=== PATIENT | male | born 1980 | race Caucasian/White ===

== ENCOUNTER 2022-06-05 13:55 | Outpatient (CLI) | payer OTHER, SELFPAY ==
[2022-06-05 14:34] LABS: Albumin* 4.8 g/dL (3.3-5.0); Chloride* 104 mmol/L (96-114)
[2022-06-05 14:35] LABS: Potassium* 4.5 mmol/L (3.6-5.1); Sodium* 140 mmol/L (135-149)
[2022-06-05 14:37] LABS: Aspartate Amino Transferase* 28 U/L (12-35); Bilirubin Total* 0.7 mg/dL (0.1-1.5); Blood Urea Nitrogen* 11 mg/dL (5-24); Carbon Dioxide* 28 mmol/L (20-32); Cholesterol* 318 mg/dL (90-199); Creatinine* 0.8 mg/dL (0.5-1.5); Estimated Glomerular Filt Rate 115 ml/min; Total Protein* 7.7 g/dL (6.0-8.3)
[2022-06-05 14:38] LABS: Alanine Aminotransferase* 37 U/L (4-50); Alkaline Phosphatase* 87 U/L (40-150); Calcium* 9.1 mg/dL (8.4-10.6); Glucose* 132 mg/dL (60-115); HDL Cholesterol* 37 mg/dL (>=40); LDL Cholesterol Calculated 227 mg/dL (<100); Triglycerides* 268 mg/dL (40-149)
== END 2022-06-05 13:56 | disposition home or self-care (01) ==
PROVIDERS: PCP Family Medicine; Visit Provider Family Medicine
DX: Z00.00 Encounter for general adult medical examination without abnormal findings (principal); Z13.6 Encounter for screening for cardiovascular disorders
CPT/HCPCS: 80053; 80061

== ENCOUNTER 2022-06-27 08:24 | Outpatient (CLI) | payer OTHER, SELFPAY ==
[2022-06-27 14:36] LABS: Creatinine Urine 206.9 mg/dL
[2022-06-27 14:43] LABS: Microalbumin Creatinine Ratio 20 mg/g (0-30); Microalbumin Urine 5 mg/dL
== END 2022-06-27 08:25 | disposition home or self-care (01) ==
LOC: FRMREF 08:50
PROVIDERS: PCP Family Medicine; Visit Provider Family Medicine
DX: Z00.00 Encounter for general adult medical examination without abnormal findings (principal); R73.03 Prediabetes; E66.9 Obesity, unspecified; E11.65 Type 2 diabetes mellitus with hyperglycemia; E78.2 Mixed hyperlipidemia
CPT/HCPCS: 82043; 82570

== ENCOUNTER 2022-09-24 08:15 | Outpatient (CLI) | payer OTHER, SELFPAY | END 2022-09-24 08:16 | disposition home or self-care (01) | LOC: NFLDREF 09-26 06:53 | PROVIDERS: PCP Family Medicine; Visit Provider Family Medicine | DX: E11.65 Type 2 diabetes mellitus with hyperglycemia (principal); E66.01 Morbid (severe) obesity due to excess calories; E78.2 Mixed hyperlipidemia | CPT/HCPCS: 80053; 80061; 82607 ==

== ENCOUNTER 2023-04-07 08:41 | Outpatient (CLI) | payer OTHER, SELFPAY | END 2023-04-07 08:42 | disposition home or self-care (01) | LOC: NFLDREF 04-09 13:05 | PROVIDERS: PCP Family Medicine; Referring Provider Family Medicine; Visit Provider Family Medicine | DX: E11.65 Type 2 diabetes mellitus with hyperglycemia (principal); E78.2 Mixed hyperlipidemia; E53.8 Deficiency of other specified B group vitamins; G63 Polyneuropathy in diseases classified elsewhere | CPT/HCPCS: 80053; 80061; 82607 ==